=== PATIENT | male | born 1995 | race African-American/Black ===

== ENCOUNTER → 2018-01-05 | Outpatient (CLI) | payer OTHER | LOC: EEVIPCON 10:53 → RAH 10:53 | PROVIDERS: ATTEND Internal Medicine | DX: S99.911A Unspecified injury of right ankle, initial encounter (principal); X58.XXXA Exposure to other specified factors, initial encounter; Y93.89 Activity, other specified; Y92.89 Other specified places as the place of occurrence of the external cause; Y99.8 Other external cause status | CPT/HCPCS: 73610 ==